=== PATIENT | male | born 1945 | race Hispanic/Latino ===

== ENCOUNTER 2020-05-19 09:54 | Emergency (ER) | payer MEDICARE ==
--- NOTE | 2020-05-19 10:29 | Emergency Department Report ---
ED Chest Pain HPI - General Stated Complaint: CHEST PAIN Time Seen by Provider: 05/19/20 10:19 - History of Present Illness Initial Comments: This is a 75-year-old man that resides at home. He states he has been having chest pain in the anterior aspect of his left upper outer quadrant of his chest close to his left shoulder but nonradiating and nonpleuritic for the past at least a month and a half. He says it is associated with his pacemaker pocket a nd sometimes is like a soreness. He states that usually the pain is of 1 to 2 minutes in duration but since last night it became more constant. He finally called EMS for evaluation. He does not report any associated sweating, nausea, vomiting, shortness of breath. The pain itself is nonpleuritic. He has had no fever or chills. At the time of my encounter he states that he has essentially no pain. Patient states that he has had previous stents obviously pacemaker placement. Cardiology consultation in 2015: History of Present Illness Consult date: 02/18/15 Requesting physician: VITA WYNN History of present illness: The patient is a 70 year old male who is followed by Dr. Socrates Rocha in the office with a history of CAD s/p PCI, sick sinus syndrome s/p Biotronik pacemaker, HTN, hyperlipidemia who presented with complaints of intermittent left sided chest pain over the past 2 weeks. He states the chest pain radiates down his left arm and is associated with shortness of breath and dizziness. No palpitations, nausea, vomiting or diaphoresis. He states that the chest pain occurs both at rest and with activity. No exacerbating or relieving factors. Cardiac enzymes are negative x 2 sets. Cardiac cath in 04/2013 showed 50% proximal LAD, 25% high mid LAD, widely patent mid LAD stent. Scattered luminal irregularities noted in the circumflex and RCA. Echo done 11/2013 showed mild LVH, EF 50%, impaired relaxation, mild AR. MD Complaint: chest pain -: Gradual, month(s) Onset: during rest Pain Location: left chest Pain Radiation: none Severity: mild Quality: aching Consistency: intermittent, now resolved Improves With: nothing Worsens With: nothing re: denies: nausea, vomting, diaphoresis, dyspnea, sense of impending doom Other Symptoms: denies: cough, fever, syncope Treatments Prior to Arrival: none Aspirin use within the Past 7 Days: (0) No - Related Data Home Medications Medication Instructions Recorded Confirmed Last Taken Furosemide [Lasix TAB] 40 mg PO QDAY 09/17/15 05/19/20 09/14/17 AtorvaSTATin [Lipitor] 40 mg PO QHS 09/13/17 05/19/20 09/14/17 Potassium Gluconate [Potassium] 550 mg PO DAILY 09/13/17 05/19/20 09/14/17 Acetaminophen [Tylenol] 325 mg PO PRN PRN 05/19/20 05/19/20 Unknown Aspirin [Adult Aspirin] 81 mg PO QDAY 05/19/20 05/19/20 Unknown Previous Rx's Medication Instructions Recorded Last Taken Type traMADoL [Ultram] 50 mg PO Q6HR PRN #10 tablet 05/19/20 Unknown Rx Allergies Allergy/AdvReac Type Severity Reaction Status Date / Time cephalexin monohydrate Allergy Swelling Verified 09/13/17 09:44 [From Keflex] NSAIDS (Non-Steroidal Allergy Rash Verified 09/13/17 09:44 Anti-Inflamma IV CONTRAST DYE Allergy Swelling, Uncoded 09/13/17 09:44 ITCHING SEAFOOD Allergy Itching,SWE Uncoded 09/13/17 09:44 LLING Heart Score - HEART Score History: Slightly suspicious EKG: Non-specific Age: > 65 Risk factors: > 3 risk factors or hx of atherosclerotic disease Troponin: < normal limit HEART Score: 5 ED Review of Systems ROS: Stated complaint: CHEST PAIN Other details as noted in HPI Constitutional: denies: chills, fever Eyes: denies: eye pain, vision change ENT: denies: ear pain, throat pain Respiratory: denies: cough, shortness of breath Cardiovascular: chest pain. denies: palpitations Endocrine: no symptoms reported Gastrointestinal: denies: abdominal pain, nausea, diarrhea Genitourinary: denies: urgency, dysuria Musculoskeletal: denies: back pain, joint swelling, arthralgia Skin: denies: rash, lesions Neurological: denies: headache, weakness, paresthesias Psychiatric: denies: anxiety, depression Hematological/Lymphatic: denies: easy bleeding, easy bruising ED Past Medical Hx - Past Medical History Hx Hypertension: Yes (Until recently) Hx Heart Attack/AMI: Yes (x1 mild, ? when) Hx Congestive Heart Failure: Yes (Prior to CABG) Hx Renal Disease: No Hx Arthritis: Yes Hx Seizures: No Hx Asthma: Yes (Not treated) Hx COPD: No - Surgical History Hx Coronary Stent: Yes (x2) Hx Pacemaker: Yes Hx Cholecystectomy: Yes - Social History Smoking Status: Former Smoker - Medications Home Medications: Home Medications Medication Instructions Recorded Confirmed Last Taken Type Furosemide [Lasix TAB] 40 mg PO QDAY 09/17/15 05/19/20 09/14/17 History AtorvaSTATin [Lipitor] 40 mg PO QHS 09/13/17 05/19/20 09/14/17 History Potassium Gluconate [Potassium] 550 mg PO DAILY 09/13/17 05/19/20 09/14/17 History Acetaminophen [Tylenol] 325 mg PO PRN PRN 05/19/20 05/19/20 Unknown History Aspirin [Adult Aspirin] 81 mg PO QDAY 05/19/20 05/19/20 Unknown History traMADoL [Ultram] 50 mg PO Q6HR PRN #10 tablet 05/19/20 Unknown Rx ED Physical Exam - General General appearance: alert, in no apparent distress - Head Head exam: Present: atraumatic, normocephalic - Eye Eye exam: Present: normal appearance. Absent: scleral icterus - ENT ENT exam: Present: mucous membranes moist - Neck Neck exam: Present: normal inspection - Respiratory Respiratory exam: Present: normal lung sounds bilaterally, other (Pacemaker pocket appears normal). Absent: respiratory distress - Cardiovascular Cardiovascular Exam: Present: regular rate, normal rhythm. Absent: systolic murmur, diastolic murmur, rubs, gallop - GI/Abdominal GI/Abdominal exam: Present: soft, normal bowel sounds. Absent: distended, tenderness, guarding, rebound - Rectal Rectal exam: Present: deferred - Extremities Exam Extremities exam: Present: normal inspection - Back Exam Back exam: Present: normal inspection - Neurological Exam Neurological exam: Present: alert, oriented X3, CN II-XII intact. Absent: motor sensory deficit - Psychiatric Psychiatric exam: Present: normal affect, normal mood - Skin Skin exam: Present: warm, dry, intact, normal color. Absent: rash ED Course Vital Signs 05/19/20 05/19/20 05/19/20 10:00 10:30 11:00 Temperature 99 F Pulse Rate 76 85 73 Respiratory 36 H 15 14 Rate Blood Pressure 144/79 129/68 126/71 O2 Sat by Pulse 97 Oximetry 01/10/21 01/10/21 01/10/21 11:31 11:43 12:03 Temperature Pulse Rate 76 Respiratory 20 22 16 Rate Blood Pressure 133/62 133/62 O2 Sat by Pulse 98 98 Oximetry 05/19/20 05/19/20 05/19/20 12:31 13:00 13:31 Temperature Pulse Rate 77 97 H 83 Respiratory 27 H 27 H 21 Rate Blood Pressure 159/100 138/81 132/85 O2 Sat by Pulse 98 94 97 Oximetry 05/19/20 05/19/20 14:01 14:31 Temperature Pulse Rate 86 96 H Respiratory 25 H 18 Rate Blood Pressure 138/81 133/70 O2 Sat by Pulse 97 Oximetry - Reevaluation(s) Reevaluation #1: Patient has been observed for quite some time. He has not been complaining of chest pain whatsoever. He confirms that the soreness was around the pacemaker pocket itself near his left periaxillary area. He has had negative serial troponins. I do not see that he would likely benefit from hospitalization especially during the Covid pandemic. 05/19/20 14:51 MIGUEL score - Miguel Score Age > 65: (0) No Aspirin use within the Past 7 Days: (0) No 3 or more CAD Risk Factors: (1) Yes 2 or more Angina events in past 24 hrs: (0) No Known CAD with more than 50% Stenosis: (1) Yes Elevated Cardiac Markers: (0) No ST Deviation Greater than 0.5mm: (0) No MIGUEL Score: 2 ED Medical Decision Making - Lab Data Result diagrams: 05/19/20 10:44 05/19/20 10:44 Laboratory Results - last 24 hr 05/19/20 05/19/20 05/19/20 10:44 10:44 10:44 WBC 9.8 RBC 4.67 Hgb 15.2 Hct 43.3 MCV 93 MCH 33 H MCHC 35 H RDW 13.1 L Plt Count 157 Lymph % (Auto) 10.7 L [place] % (Auto) 12.0 H Eos % (Auto) 3.5 Baso % (Auto) 0.3 Lymph # (Auto) 1.0 L [place] # (Auto) 1.2 H Eos # (Auto) 0.3 Baso # (Auto) 0.0 Seg Neutrophils % 73.5 H Seg Neutrophils # 7.2 PT 13.7 INR 1.06 APTT 30.8 Sodium 138 Potassium 4.7 Chloride 101.9 Carbon Dioxide 31 H Anion Gap 10 BUN 14 Creatinine 0.9 Estimated GFR > 60 BUN/Creatinine Ratio 16 Glucose 101 H Calcium 9.3 Total Bilirubin Direct Bilirubin Indirect Bilirubin AST ALT Alkaline Phosphatase Troponin T < 0.010 Total Protein Albumin Albumin/Globulin Ratio 05/19/20 10:44 WBC RBC Hgb Hct MCV MCH MCHC RDW Plt Count Lymph % (Auto) [place] % (Auto) Eos % (Auto) Baso % (Auto) Lymph # (Auto) [place] # (Auto) Eos # (Auto) Baso # (Auto) Seg Neutrophils % Seg Neutrophils # PT INR APTT Sodium Potassium Chloride Carbon Dioxide Anion Gap BUN Creatinine Estimated GFR BUN/Creatinine Ratio Glucose Calcium Total Bilirubin 0.60 Direct Bilirubin < 0.2 Indirect Bilirubin 0.4 AST 16 ALT 14 Alkaline Phosphatase 80 Troponin T Total Protein 6.0 L Albumin 3.3 L Albumin/Globulin Ratio 1.2 Laboratory Results - last 24 hr 05/19/20 05/19/20 05/19/20 10:44 10:44 10:44 WBC 9.8 RBC 4.67 Hgb 15.2 Hct 43.3 MCV 93 MCH 33 H MCHC 35 H RDW 13.1 L Plt Count 157 Lymph % (Auto) 10.7 L [place] % (Auto) 12.0 H Eos % (Auto) 3.5 Baso % (Auto) 0.3 Lymph # (Auto) 1.0 L [place] # (Auto) 1.2 H Eos # (Auto) 0.3 Baso # (Auto) 0.0 Seg Neutrophils % 73.5 H Seg Neutrophils # 7.2 PT 13.7 INR 1.06 APTT 30.8 Sodium 138 Potassium 4.7 Chloride 101.9 Carbon Dioxide 31 H Anion Gap 10 BUN 14 Creatinine 0.9 Estimated GFR > 60 BUN/Creatinine Ratio 16 Glucose 101 H Calcium 9.3 Total Bilirubin Direct Bilirubin Indirect Bilirubin AST ALT Alkaline Phosphatase Troponin T < 0.010 Total Protein Albumin Albumin/Globulin Ratio 05/19/20 05/19/20 10:44 13:01 WBC RBC Hgb Hct MCV MCH MCHC RDW Plt Count Lymph % (Auto) [place] % (Auto) Eos % (Auto) Baso % (Auto) Lymph # (Auto) [place] # (Auto) Eos # (Auto) Baso # (Auto) Seg Neutrophils % Seg Neutrophils # PT INR APTT Sodium Potassium Chloride Carbon Dioxide Anion Gap BUN Creatinine Estimated GFR BUN/Creatinine Ratio Glucose Calcium Total Bilirubin 0.60 Direct Bilirubin < 0.2 Indirect Bilirubin 0.4 AST 16 ALT 14 Alkaline Phosphatase 80 Troponin T < 0.010 Total Protein 6.0 L Albumin 3.3 L Albumin/Globulin Ratio 1.2 - EKG Data -: EKG Interpreted by Tx EKG shows normal: axis (Leftward axis) - EKG Data Interpretation: other (Occasional PVCs versus fusion beat, nonspecific anterior T wave inversion) - Radiology Data Radiology results: report reviewed (No acute process) Critical care attestation.: If time is entered above; I have spent that time in minutes in the direct care of this critically ill patient, excluding procedure time. ED Disposition Clinical Impression: Atypical chest pain Disposition: TO HOME OR SELFCARE Is pt being admited?: No Does the pt Need Aspirin: No Condition: Stable Instructions: Chest Pain (ED) Additional Instructions: Return to the emergency department for reevaluation having significant chest pain particularly if it is associated with shortness of breath sweating or nausea. Follow-up with your glove maker. Prescriptions: traMADoL [Ultram] 50 mg PO Q6HR PRN #10 tablet PRN Reason: Pain Referrals: SAMMY ROCHA MD [Staff Physician] - 2-3 Days PRIMARY CARE, [Primary Care Provider] - 3-5 Days GENNA ROCHA MD [Staff Physician] - 2-3 Days Time of Disposition: 15:02
--- NOTE | 2020-05-19 11:17 | XRay Report ---
CHEST 1 VIEW, 05/19/2020 10:57 AM CLINICAL INFORMATION/INDICATION: Chest pain COMPARISON: None FINDINGS: SUPPORT DEVICES: Dual lead cardiac pacing device is present. HEART: The cardiac silhouette is normal in size. LUNGS/PLEURA: The lungs are clear of focal airspace disease or significant pleural effusion. ADDITIONAL FINDINGS: No additional acute findings. IMPRESSION: 1. No evidence of acute cardiopulmonary process. Signer Name: Jerilyn Donaldson MD Signed: 05/19/2020 11:13 AM Workstation Name: [id number]
[2020-05-19 11:22] LABS: Basophils % (Auto) 0.3 % (0.0-1.8); Eosinophils # (Auto) 0.3 K/mm3 (0.0-0.4); Eosinophils % (Auto) 3.5 % (0.0-4.3); Hematocrit 43.3 % (35.5-45.6); Hemoglobin 15.2 gm/dl (11.8-15.2); Lymphocytes % (Auto) 10.7 % (13.4-35.0); Mean Corpuscular HGB Conc 35 % (32-34); Mean Corpuscular Volume 93 fl (84-94); Monocytes # (Auto) 1.2 K/mm3 (0.0-0.8); Platelet Count 157 K/mm3 (140-440); Red Blood Count 4.67 M/mm3 (3.65-5.03); Red Cell Distribution Width 13.1 % (13.2-15.2)
[2020-05-19 11:28] LABS: BUN/Creatinine Ratio 16; Blood Urea Nitrogen 14 mg/dL (9-20); Calcium 9.3 mg/dL (8.4-10.2); Hemolysis Index 12
[2020-05-19 11:32] LABS: Alanine Aminotransferase 14 units/L (7-56); Albumin 3.3 g/dL (3.9-5)
[2020-05-19 11:33] LABS: INR 1.06 (0.87-1.13)
[2020-05-19 11:34] LABS: Partial Thromboplastin Time 30.8 Sec. (24.2-36.6)
[2020-05-19 11:35] LABS: Bilirubin,Direct < 0.2 mg/dL (0-0.2)
[2020-05-19 16:15] VITALS: BP 145/78
== END 2020-05-19 15:12 | disposition home or self-care (01) ==
LOC: ED 09:54
DX: R07.89 Other chest pain (principal); M25.512 Pain in left shoulder; I11.0 Hypertensive heart disease with heart failure; I50.9 Heart failure, unspecified; M19.91 Primary osteoarthritis, unspecified site; J45.909 Unspecified asthma, uncomplicated; Z90.49 Acquired absence of other specified parts of digestive tract; Z87.891 Personal history of nicotine dependence; Z79.899 Other long term (current) drug therapy; Z88.8 Allergy status to other drugs, medicaments and biological substances
CPT/HCPCS: 36415; 71045; 80048; 80076; 84484; 85025; 85610; 85730; 93005

== ENCOUNTER 2020-08-28 06:19 | Day surgery (SDC) | payer MEDICARE ==
[2020-08-28] MEDS ORDERED: ASPIRIN EC 325 MG TAB PO NR (07:00)
[2020-08-28 07:31] LABS: Basophils % (Auto) 0.2 % (0.0-1.8); Hematocrit 47.3 % (35.5-45.6); Hemoglobin 16.2 gm/dl (11.8-15.2); Lymphocytes # (Auto) 0.8 K/mm3 (1.2-5.4); Lymphocytes % (Auto) 8.1 % (13.4-35.0); Mean Corpuscular HGB Conc 34 % (32-34); Mean Corpuscular Volume 94 fl (84-94); Monocytes # (Auto) 0.5 K/mm3 (0.0-0.8); Monocytes % (Auto) 4.9 % (0.0-7.3); Platelet Count 162 K/mm3 (140-440); Red Blood Count 5.04 M/mm3 (3.65-5.03); Red Cell Distribution Width 14.2 % (13.2-15.2)
[2020-08-28 07:41] LABS: INR 0.97 (0.87-1.13)
[2020-08-28 07:43] LABS: Calcium 9.4 mg/dL (8.4-10.2)
[2020-08-28 07:52] LABS: Partial Thromboplastin Time 29.7 Sec. (24.2-36.6)
[2020-08-28] MEDS: SODIUM CHLORIDE 0.9% 500 ML 500 ML IV SCH ×2 (07:56→11:18)
[2020-08-28] MEDS ORDERED: fentaNYL 100 MCG/2 ML INJ ONE (08:17)
[2020-08-28] MEDS ORDERED: HEPARIN 10,000 UNITS/10 ML VIAL ONE (08:17)
[2020-08-28] MEDS ORDERED: MIDAZOLAM 2 MG/2 ML INJ ONE (08:17)
[2020-08-28] MEDS ORDERED: HEPARIN/NS 5000 UNIT/500ML 1,000 ML IR ONE (08:17)
[2020-08-28] MEDS ORDERED: LIDOCAINE (2%) 20 MG/1 ML VIAL 20 ML MDV INFILTRATI ONE (08:18)
[2020-08-28] MEDS ORDERED: diphenhydrAMINE 50 MG/ML VIAL ONE (08:39)
[2020-08-28] MEDS ORDERED: methylPREDNISolone Sod Succinate 125 MG/2 ML INJ ONE (08:39)
[2020-08-28] MEDS ORDERED: NITROGLYCERIN SYRINGE 0 ML ONE (09:07)
[2020-08-28] MEDS ORDERED: hydrALAZINE 20 MG/1 ML INJ ONE (09:18)
[2020-08-28] MEDS ORDERED: ATROPINE 0.1% (1 MG/10 ML) CARDIAC SYRINGE ONE (09:31)
--- NOTE | 2020-08-28 12:55 | Short Stay Summary ---
Short Stay Documentation Date of service: 08/28/20 - History H&P: obtained from office - Allergies and Medications Current Medications: Allergies cephalexin monohydrate [From Keflex] Allergy (Verified 09/13/17 09:44) Swelling NSAIDS (Non-Steroidal Anti-Inflamma Allergy (Verified 09/13/17 09:44) Rash IV CONTRAST DYE Allergy (Uncoded 09/13/17 09:44) Swelling, ITCHING SEAFOOD Allergy (Uncoded 09/13/17 09:44) Itching,SWELLING Home Medications Medication Instructions Recorded Confirmed Last Taken Type Furosemide [Lasix TAB] 40 mg PO QDAY 09/17/15 08/28/20 08/27/20 History 40 mg AtorvaSTATin [Lipitor] 40 mg PO QHS 09/13/17 08/28/20 08/27/20 History 40 mg Potassium Gluconate [Potassium] 550 mg PO DAILY 09/13/17 08/28/20 08/27/20 History 1 tab Acetaminophen [Tylenol] 325 mg PO PRN PRN 05/19/20 08/28/20 08/28/20 05:30 History 2 tabs Aspirin [Adult Aspirin] 81 mg PO QDAY 05/19/20 08/28/20 08/27/20 History 81 mg Active Medications Sodium Chloride (Nacl 0.9% 500 Ml) 500 mls @ 50 mls/hr IV DIRECT TAMI Stop: 08/28/20 16:59 Last Admin: 08/28/20 11:18 Dose: 50 mls/hr Documented by: - Physical exam Integumentary: other (Right groin access. Telfa and tegaderm in place. Site is clean dry and intact, No bleeding or hematoma noted. ) - Brief post op/procedure progress note Date of procedure: 08/28/20 Pre-op diagnosis: Abnormal MPI Stress Test Post-op diagnosis: other (Normal Coronary Arteries) Procedure: [facility]- see dictated cath report Anesthesia: local Estimated blood loss: none Condition: stable - Disposition Condition at discharge: Good Disposition: [id number] TO HOME OR SELFCARE - Discharge Diagnoses (1) Normal coronary arteries Status: Acute Short Stay Discharge Plan Activity: advance as tolerated Diet: low fat, low cholesterol, low salt Wound: open to air, keep clean and dry, per your surgeon's advice Follow up with: YESENIA SALINAS MD [Primary Care Provider] - 7 Days GENNA ROCHA MD [Staff Physician] - 7 Days (Pt should f/u with Dr Baudilio Rocha in our office within 1-2 weeks of discharge. appt pending. )
[2020-08-28 13:03] VITALS: BP 115/63
--- NOTE | 2020-08-28 15:46 | Cardiac Catherization Report ---
DATE OF PROCEDURE: 08/28/2020 CARDIAC CATHETERIZATION REFERRING PHYSICIAN: Og Joshi MD INDICATIONS FOR PROCEDURE: The patient is a very pleasant 75-year-old gentleman who over the past several months has had more shortness of breath. Echo shows new mild cardiomyopathy with anterior apical hypokinesis. Also, stress test shows anterior apical scar which is new. He is referred for left heart catheterization. He has had a robotic ORELLANA in the past. Risks, benefits and alternatives discussed. PROCEDURE IN DETAIL: The patient was brought to catheterization lab in a postabsorptive state, prepped and draped in sterile fashion. 8 mL of 2% lidocaine used to anesthetize the right groin. A standard 6-[place] sheath used to cannulate the right common femoral artery via modified Seldinger technique. All exchanges performed to exchange a J tipped guidewire. JL3.5 catheter used to engage the left main. No dampening or ventricularization. Cineangiography performed in all projections. JR4 catheter used to cross the aortic valve under fluoroscopic guidance. Left ventriculography performed in 30 [place] and 30 [place] projections via hand injection, catheter flushed. Manual pullback performed with continuous pressure monitoring. Catheter used to engage the right coronary. No dampening or ventricularization. Cineangiography performed in all projections. Next, catheter used to engage the left subclavian very tortuous, carefully advanced over a wire. Due to difficulty in advancing, a selective third order left subclavian angiogram was performed. Selective ORELLANA angiography was performed in multiple projections. Catheter was removed from the left subclavian and the body over a wire. No complications. The patient tolerated the procedure well. I directly supervised the administration of moderate sedation with fentanyl and Versed from 8:50 a.m. to 9:20 a.m. No immediate complications identified. DATA: Aortic pressure is 140/80, LV pressures 140, LVEDP of 25 mmHg. Left ventriculography reveals mild anterior apical hypokinesis with estimated ejection fraction of 45-50%. No evidence of aortic stenosis is noted. Right coronary small, nondominant, no significant disease. The left main is large, no significant disease, short, bifurcates into LAD and left circumflex. The left circumflex is a moderate sized vessel, courses AV groove, gives off the left PDA, strongly dominant left circumflex, 30-40% mid left circumflex stenosis is identified. LAD with diffuse disease proximally in the mid segment, multiple stents proximally in the mid segment. Occluded in the mid segment with competitive flow from ORELLANA. Diagonals are patent with mild ostial disease. ORELLANA to LAD is widely patent. Insertion site looks good. Left subclavian angiography reveals no evidence of stenosis. CONCLUSIONS: 1. Severe [place] single vessel coronary artery disease with complex proximal LAD stenosis with mid LAD occlusion. Patent ORELLANA to LAD, nonobstructive disease noted in the left circumflex, nondominant right coronary. Patent ORELLANA to LAD, patent left subclavian. 2. Mild anterior apical hypokinesis. Estimated ejection fraction of 45-50%. No evidence of aortic stenosis. The patient is clinically stable. Optimize medical therapy. No further changes. Check a carotid ultrasound in the office due to dizziness. He has been following us for pacemaker checks. Discussed with his via telephone. Standard groin care. TID: [id number] RECEIPT: [id number] SBM/NIT
--- NOTE | 2020-08-29 09:35 | Electrocardiograph Report ---
[facility] Test Date: 2020-08-28 Test Time: 08:06:27 Pat Name: ERNESTO SOLIS Department: Room: Gender: M Devops Engineer: CONNOR : 1945 Requested By: OG JOSHI Order Number: [id number] Reading MD: Og Joshi Measurements Intervals [place] Rate: 60 P: -16 NM: 159 QRS: -12 QRSD: 97 T: 90 QT: 465 QTc: 465 Interpretive Statements Sinus rhythm Atrial premature complex Inferior infarct, old Abnrm T, probable ischemia, anterolateral lds No previous ECG available for comparison Electronically Signed On 08-29-2020 9:35:00 EDT by Og Joshi
== END 2020-08-28 14:18 | disposition home or self-care (01) ==
LOC: CATHLABREC 06:19
PROVIDERS: ATTEND Internal Medicine
DX: R06.02 Shortness of breath (principal); I25.118 Atherosclerotic heart disease of native coronary artery with other forms of angina pectoris; I11.0 Hypertensive heart disease with heart failure; I50.9 Heart failure, unspecified; J45.909 Unspecified asthma, uncomplicated; M19.90 Unspecified osteoarthritis, unspecified site; Z79.899 Other long term (current) drug therapy; Z90.13 Acquired absence of bilateral breasts and nipples; Z79.82 Long term (current) use of aspirin; Z88.8 Allergy status to other drugs, medicaments and biological substances; Z87.891 Personal history of nicotine dependence; Z98.61 Coronary angioplasty status; Z98.41 Cataract extraction status, right eye; Z98.42 Cataract extraction status, left eye; Z90.49 Acquired absence of other specified parts of digestive tract; Z87.440 Personal history of urinary (tract) infections; Z80.8 Family history of malignant neoplasm of other organs or systems; Z98.890 Other specified postprocedural states
CPT/HCPCS: 36415; 80048; 85025; 85610; 85730; 93005; 93459; 99156; 99157; C1894; J0360; J1644; J2250; J3010; J7040; J0461; J1200; J2930; Q9967